=== PATIENT | male | born 1990 | race Caucasian/White ===

== ENCOUNTER 2018-05-28 04:27 | Day surgery (SDC) | payer SELFPAY ==
[~2018-05-28 04:27] MED LIST: HYOS-49 PO; ONDA-2 PO
--- NOTE | 2018-05-28 04:30 | ER Report ---
History and Physical Time Seen By MD: 04:30 HPI/ROS CHIEF COMPLAINT: Right lower quadrant abdominal pain HISTORY OF PRESENT ILLNESS: Patient is a 28-year-old male with progressively worsening right lower quadrant abdominal pain associated with nausea and retching symptoms began approximately 10 PM last evening. Patient reports positive anorexia. The pain is focally located in the right lower quadrant without migration. Patient denies dysuria or testicular pain denies flank pain. Patient denies fevers or chills. Patient has no recent travel history no recent antibiotic use and no known ill contacts. Patient has had no prior abdominal nancy geries. Pain is described as severe and unremitting and worse with movement. REVIEW OF SYSTEMS: Constitutional: No fever, no chills. Eyes: No discharge. ENT: No sore throat. Cardiovascular: No chest pain, no palpitations. Respiratory: No cough, no shortness of breath. Gastrointestinal: Right lower quadrant abdominal pain Genitourinary: No hematuria. Musculoskeletal: No back pain. Skin: No rashes. Neurological: No headache. Allergies: Coded Allergies: banana (Verified Allergy, Severe, ANAPHYLAXIS, 05/28/18) Home Meds Discontinued Scripts Ondansetron Hcl (ONDANSETRON HCL) 4 Mg Tablet, 4 MG PO Q4-6H for Nausea, #10 Prov:CHRISTINA EHATON MD 05/26/14 Hyoscyamine Sulfate (LEVSIN) 0.125 Mg Tablet, 0.125 MG PO TID for abdominal cramps, #30 Prov:CHRISTINA HEATON MD 05/26/14 Past Medical/Surgical History Noncontributory towards this chief complaint Hx Smoking: Yes Smoking Status: Current: Every Day Smoker Hx Substance Use Disorder: No Hx Alcohol Use: No Constitutional Vital Sign - Last 24 Hours 05/28/18 05/28/18 05/28/18 05/28/18 04:33 04:35 04:42 05:27 Temp 98.3 Pulse 65 78 70 Resp 24 B/P (MAP) 137/86 (103) 137/86 Pulse Ox 94 97 88 O2 Delivery Room Air Intake and Output 05/27/18 05/27/18 05/28/18 15:00 23:00 07:00 Intake Total 1000 ml Balance 1000 ml Physical Exam General Appearance: The patient is alert, has no immediate need for airway protection and no signs of toxicity. Eyes: Pupils equal and round no pallor or injection. ENT, Mouth: Mucous membranes are moist. Respiratory: There are no retractions, lungs are clear to auscultation. Cardiovascular: Regular rate and rhythm. Gastrointestinal: Patient is pain to percussion no McBurney's point with rebound tenderness. Positive rosving sign. Neurological: Awake and alert Skin: Warm and dry, no rashes. Musculoskeletal: Neck is supple non tender. Extremities are nontender, nonswollen and have full range of motion. [ ] Medical Decision Making Data Points Result Diagram: 05/28/188 05/28/188 Laboratory Hematology Test 05/28/18 04:48 Red Blood Count 5.88 M/uL (4.00-5.60) Mean Corpuscular Volume 91.0 fL (80.0-96.0) Mean Corpuscular Hemoglobin 31.5 pg (26.0-33.0) Mean Corpuscular Hemoglobin Concent 34.6 g/dL (32.0-36.0) Red Cell Distribution Width 12.6 % (11.5-14.5) Mean Platelet Volume 8.4 fL (7.2-11.1) Neutrophils (%) (Auto) 86.8 % (39.4-72.5) Lymphocytes (%) (Auto) 7.5 % (17.6-49.6) Monocytes (%) (Auto) 5.1 % (4.1-12.4) Eosinophils (%) (Auto) 0.1 % (0.4-6.7) Basophils (%) (Auto) 0.5 % (0.3-1.4) Nucleated RBC Relative Count (auto) 0.0 /100WBC Neutrophils # (Auto) 21.4 K/uL (2.0-7.4) Lymphocytes # (Auto) 1.8 K/uL (1.3-3.6) Monocytes # (Auto) 1.2 K/uL (0.3-1.0) Eosinophils # (Auto) 0.0 K/uL (0.0-0.5) Basophils # (Auto) 0.1 K/uL (0.0-0.1) Nucleated RBC Absolute Count (auto) 0.01 K/uL Peripheral Blood Smear Yes Y/N Sodium Level 140 mmol/L (137-145) Potassium Level 3.7 mmol/L (3.5-5.0) Chloride Level 103 mmol/L (98-107) Carbon Dioxide Level 23 mmol/L (22-30) Blood Urea Nitrogen 14 mg/dl (9-21) Creatinine 1.00 mg/dl (0.66-1.25) Glomerular Filtration Rate Calc > 60.0 Random Glucose 119 mg/dl (75-110) Calcium Level 9.3 mg/dl (8.4-10.2) Total Bilirubin 2.1 mg/dl (0.2-1.3) Aspartate Amino Transf (AST/SGOT) 24 U/L (0-35) Alanine Aminotransferase (ALT/SGPT) 23 U/L (0-56) Alkaline Phosphatase 47 U/L (0-126) Total Protein 7.2 g/dl (6.3-8.2) Albumin 4.4 g/dl (3.5-5.0) Lipase 31 U/L (23-300) Chemistry Test 05/28/18 04:48 White Blood Count 24.6 k/uL (4.5-11.0) Red Blood Count 5.88 M/uL (4.00-5.60) Hemoglobin 18.5 g/dL (14.0-18.0) Hematocrit 53.5 % (42.0-52.0) Mean Corpuscular Volume 91.0 fL (80.0-96.0) Mean Corpuscular Hemoglobin 31.5 pg (26.0-33.0) Mean Corpuscular Hemoglobin Concent 34.6 g/dL (32.0-36.0) Red Cell Distribution Width 12.6 % (11.5-14.5) Platelet Count 223 K/uL (150-450) Mean Platelet Volume 8.4 fL (7.2-11.1) Neutrophils (%) (Auto) 86.8 % (39.4-72.5) Lymphocytes (%) (Auto) 7.5 % (17.6-49.6) Monocytes (%) (Auto) 5.1 % (4.1-12.4) Eosinophils (%) (Auto) 0.1 % (0.4-6.7) Basophils (%) (Auto) 0.5 % (0.3-1.4) Nucleated RBC Relative Count (auto) 0.0 /100WBC Neutrophils # (Auto) 21.4 K/uL (2.0-7.4) Lymphocytes # (Auto) 1.8 K/uL (1.3-3.6) Monocytes # (Auto) 1.2 K/uL (0.3-1.0) Eosinophils # (Auto) 0.0 K/uL (0.0-0.5) Basophils # (Auto) 0.1 K/uL (0.0-0.1) Nucleated RBC Absolute Count (auto) 0.01 K/uL Peripheral Blood Smear Yes Y/N Glomerular Filtration Rate Calc > 60.0 Calcium Level 9.3 mg/dl (8.4-10.2) Total Bilirubin 2.1 mg/dl (0.2-1.3) Aspartate Amino Transf (AST/SGOT) 24 U/L (0-35) Alanine Aminotransferase (ALT/SGPT) 23 U/L (0-56) Alkaline Phosphatase 47 U/L (0-126) Total Protein 7.2 g/dl (6.3-8.2) Albumin 4.4 g/dl (3.5-5.0) Lipase 31 U/L (23-300) ED Course/Re-evaluation Clinical Indication for ER IV: IV Access ED Course 05/28/2018 4:56:48 am After history and physical exam was performed differential diagnosis was formulated which includes but is not limited to acute appendicitis, kidney stone, urinary tract infection, gastroenteritis. And at this time will be CBC CMP CT scan of the abdomen and pelvis. We will give IV pain and nausea medicine and place the patient in an nothing by mouth status. 05/28/2018 6:03:[address] Jean Baptiste happened to be in the emergency department. History physical exam pertinent lab data were reviewed. CT scan official read is pending however Dr. Jean Baptiste did review the films personally himself and is concerned about acute ruptured appendicitis. He would like us to give 4.5 g of IV Zosyn. Keep the patient nothing by mouth and admitted to the hospital for surgery Decision to Disposition Date: May 28, 2018 Decision to Disposition Time: 06:04 Depart Departure Latest Vital Signs Vital Signs Date Time Temp Pulse Resp B/P (MAP) Pulse Ox O2 Delivery O2 Flow Rate FiO2 05/28/18 05:27 70 88 05/28/18 04:35 98.3 24 137/86 Room Air Impression: Primary Impression: Appendicitis, acute Condition: Improved Disposition: Admitted from ER (to dr Jean Baptiste) New Scripts No Active Prescriptions or Reported Meds Problem Qualifiers Primary Impression: Appendicitis, acute Acute appendicitis type: unspecified acute appendicitis type Qualified Codes: K35.80 - Unspecified acute appendicitis AIDAN MATTA MD May 28, 2018 04:30
[2018-05-28] MEDS ORDERED: NS(*) 0.9% 1000 ML BAG 1,000 ML IV ONE ×2 (04:43→04:53)
[2018-05-28] MEDS ORDERED: ONDANSETRON 4 MG/2 ML VIAL IVP ONE ×2 (04:45→04:55)
[2018-05-28] MEDS ORDERED: MORPHINE 4 MG/ML SDV IVP ONE (04:55)
[2018-05-28 04:59] LABS: PLATELET COUNT, AUTOMATED 223 K/uL (150-450)
[2018-05-28] MEDS ORDERED: IOPAMIDOL 76% 75 ML INFUS BTL 75 ML ONE (05:10)
[2018-05-28] MEDS: PIPERACILLIN/TAZO* 4.5 GM VIAL 4.5 GM in NS(*) 0.9% 100 ML ADDVANT BAG 100 ML IVPB ONE (06:05)
[2018-05-28] MEDS ORDERED: NORMOSOL R SOLN(*) 1000 ML BAG 1,000 ML IV ONE (06:07)
[2018-05-28] MEDS ORDERED: PIPERACILLIN/TAZO 4.5 GM VIAL IVPB ONE (06:13)
[2018-05-28] MEDS ORDERED: NS(*) 0.9% 250 ML BAG 250 ML ONE (06:15)
--- NOTE | 2018-05-28 06:26 | RADIOLOGY IMAGING REPORT ---
FACILITY: [facility] PATIENT NAME: Sal Leyva : 1990 MR: [id number] V: [id number] EXAM DATE: [id number] ORDERING PHYSICIAN: AIDAN MATTA TECHNOLOGIST: [place] [facility] [place] Patient: Sal Leyva : 1990 Visit/Account:[id number] Date of Sevice: 05/28/2018 CT of the abdomen and pelvis with contrast: Indication: Right lower quadrant pain. Technique: Helical CT was performed through the abdomen and pelvis following IV contrast enhancement with 75 cc of Isovue-370. Multiplanar reconstructions are reviewed. One of the following dose optimization techniques was utilized in the performance of this exam: Autom ated exposure control; adjustment of the mA and/or kV according to the patient's size; or use of an i terative reconstruction technique. Specific details can be referenced in the facility's radiology CT exam operational policy. Comparison: None. Lower lung young: No parenchymal or pleural abnormality is identified. Liver: Normal in size, shape, and density. There is uniform enhancement of the venous structures. Gallbladder/biliary tree: The gallbladder is normal in size and homogeneous in density. The bile duct s are normal in caliber. Pancreas: Normal in size, shape, and density. Spleen: Normal in size, shape, and density. A tiny accessory spleen is incidentally noted. Adrenal glands: Within normal limits. Kidneys/urinary bladder: The kidneys are normal in size, shape, and density. There are no signs of ur inary tract calculus or obstruction. The bladder appears homogeneous and unremarkable. Intestinal structures: The appendix is dilated, measuring 1.3 cm. There is diffuse thickening of the appendiceal wall, and the lumen is filled with fluid. Mild inflammatory changes and a small amount of fluid are present around the appendix. The findings are compatible with acute appendicitis and proba ble early perforation. No circumscribed abscess is clearly identified. The intestinal structures are otherwise unremarkable, as visualized. Pelvis: Unremarkable. No evidence of fluid collection or free fluid. Aorta and vascular structures: Within normal limits. Ascites or fluid collections: There is a small amount of fluid around the appendix. Otherwise unremar kable. Skeletal structures: Well mineralized and intact. Impression: Acute appendicitis and probable early perforation. A preliminary report was called to the referring provider at [facility] [place] at 0620 hours. Report Dictated By: Terrance Srinivasan MD at 05/28/2018 6:14 AM Report E-Signed By: Terrance Srinivasan MD at 05/28/2018 6:23 AM WSN:[id number]
--- NOTE | 2018-05-28 06:31 | Gen Surgery History & Physical ---
History of Present Illness Chief Complaint RLQ pain History of Present Illness This 28 year old male presents to ED with a day history of abdominal pain that started as vague periumbilical pain but then localized and increased in intensity in the RLQ. This is associated with anorexia and nausea. He denies change in bowel habits. He has never had similar symptoms. He has felt warm but had not taken his temperature. History Problems: (1) Cigarette smoker (2) Family history of appendicitis Home Meds Discontinued Scripts Ondansetron Hcl (ONDANSETRON HCL) 4 Mg Tablet, 4 MG PO Q4-6H for Nausea, #10 Prov:CHRISTINA HEATON MD 05/26/14 Hyoscyamine Sulfate (LEVSIN) 0.125 Mg Tablet, 0.125 MG PO TID for abdominal cramps, #30 Prov:CHRISTINA HEATON MD 05/26/14 Allergies: Coded Allergies: banana (Verified Allergy, Severe, ANAPHYLAXIS, 05/28/18) Patient History: Appendicitis Review of Systems All Systems Reviewed/Normal: Yes, Except as Noted Gastrointestinal: Nausea, Abdominal Pain Exam General Appearance: Alert, Awake, No Acute Distress, Afebrile Neuro: No Gross deficits Eyes: PERRLA ENT: Moist Mucous Membranes Cardiovascular: Regular Rate and Rhythm Respiratory: No Respiratory Distress, Clear to Auscultation GI: Other (Abdomen is soft but markedly tender in RLQ with rebound and percussion tenderness, positive Rovsings sign, BS present.) Extremities: Soft and Non Tender Psych: Alert & Oriented X3 Medical Decision Making Data Points Result Diagram: 05/28/188 05/28/188 EKG / Imaging Imaging CT c/w appendicitis Pre-Admit Course ED Medications Zosyn 4.5 gm IV Medical Record Review: Yes Assessment and Plan Problems: (1) Appendicitis, acute Status: Acute Assessment & Plan: 05/28/2018: I have discussed in detail with Mr. Leyva the diagnosis of appendicitis, the possible treatment options and the recommended plan of laparoscopic appendectomy, with the possible need to perform an open appendectomy. I also discussed the risks and possible complications of surgery, including wound infection and the need for further interventions. All of his questions were answered. He wishes to proceed with surgery. Informed consent obtained. Zosyn 4.5 gm IVPB was administered in ED. Venous Thromboembolism VTE Risk Physician Assess for VTE Risk: Yes Patient's VTE Risk: Low VTE Diagnostic Test 2 Days Prior to Admit: No Antithrombotics Is Pt On Any Antithrombotics?: No Prophylaxis Tx Contraindicated Pharmacological Contraindicati: Pt at Low Risk for VTE Problem Qualifiers (1) Appendicitis, acute: Acute appendicitis type: unspecified acute appendicitis type Qualified Codes: K35.80 - Unspecified acute appendicitis BORA KERR MD May 28, 2018 06:31
[2018-05-28] MEDS ORDERED: FAMOTIDINE(*) 20MG/50ML PREMIX 50 ML IVPB ONE (06:45)
[2018-05-28] MEDS ORDERED: LIDOCAINE MPF 1% 5 ML VIAL ONE (07:08)
[2018-05-28] MEDS ORDERED: DEXAMETHASONE SOD 4 MG/ML VIAL ONE (07:08)
[2018-05-28] MEDS ORDERED: fentaNYL CITR 250 MCG/5 ML AMP ONE (07:08)
[2018-05-28] MEDS ORDERED: ROCURONIUM BROM 10 MG/ML 10 ML ONE (07:08)
[2018-05-28] MEDS ORDERED: ONDANSETRON 4 MG/2 ML VIAL ONE (07:08)
[2018-05-28] MEDS ORDERED: SUGAMMADEX SOD 200 MG/2 ML SDV ONE (07:08)
[2018-05-28] MEDS ORDERED: PROPOFOL EMUL(*) 10MG/ML 20 ML 20 ML ONE (07:08)
[2018-05-28] MEDS ORDERED: KETAMINE HCL-NS 50 MG/5 ML SYR ONE (07:09)
[2018-05-28] MEDS ORDERED: MIDAZOLAM 2 MG/2 ML VIAL ONE (07:24)
--- NOTE | 2018-05-28 08:38 | Post Operative Progress Note ---
Post Operative Progress Note Date: May 28, 2018 Time: 08:37 Surgeon: Markel Machine [employer] Good[employer] Helper: MORGAN Anesthesia: General ET Pre-Op Diagnosis: Appendicitis Post-Op Diagnosis: Acute suppurative appendicitis (AAST grade 1) Findings: No evidence of perforation or abscess Procedure(s): Laparoscopic appendectomy Specimen Removed:(May be N/A): Appendix Complications: None Estimated Blood Loss: < 5 ml Date OP Note Dictated: May 28, 2018 Time OP Note Dictated: 08:38 BORA KERR MD May 28, 2018 08:38
--- NOTE | 2018-05-28 08:53 | Short(Outpt) Discharge Summary ---
Discharge Summary Reason for Hosp/Final Diag: (1) Appendicitis, acute Status: Acute Hospital Course & Plan: 05/28/2018: I have discussed in detail with Mr. Leyva the diagnosis of appendicitis, the possible treatment options and the recommended plan of laparoscopic appendectomy, with the possible need to perform an open appendectomy. I also discussed the risks and possible complications of surgery, including wound infection and the need for further interventions. All of his questions were answered. He wishes to proceed with surgery. Informed consent obtained. Zosyn 4.5 gm IVPB was administered in ED. 05/28/2018: Laparoscopic appendectomy for AAST Grade 1 appendicitis. Will DC home from Recovery room. Departure Discharge to: Home Discharge Instructions Home Meds Discontinued Scripts Ondansetron Hcl (ONDANSETRON HCL) 4 Mg Tablet, 4 MG PO Q4-6H for Nausea, #10 Prov:CHRISTINA HEATON MD 05/26/14 Hyoscyamine Sulfate (LEVSIN) 0.125 Mg Tablet, 0.125 MG PO TID for abdominal cramps, #30 Prov:CHRISTINA HEATON MD 05/26/14 Diet: Regular Activity: As Tolerated Special Instructions: Follow up with Dr. Baker in 7-10 days. Copies to: ROMIE BAKER MD ; Problem Qualifiers (1) Appendicitis, acute: Acute appendicitis type: with localized peritonitis Appendicitis gangrene presence: without gangrene Appendicitis perforation presence: without perforation Appendicitis abscess presence: without abscess Qualified Codes: K35.30 - Acute appendicitis with localized peritonitis, without perforation or gangrene BORA KERR MD May 28, 2018 08:53
[2018-05-28] MEDS ORDERED: HYDR-4309 PO (08:56)
[2018-05-28 10:23] VITALS: BP 104/73
[2018-05-28 10:25] VITALS: BP 94/74
[2018-05-28] MEDS ORDERED: APAP/HYDROCODONE 325/5 TAB PO ONE (10:35)
--- NOTE | 2018-05-28 12:14 | OPERATIVE REPORT 1 ---
EVENT DATE: May 28, 2018 SURGEON: Layton Jean Baptiste MD ANESTHESIOLOGIST: [*] ANESTHESIA: General endotracheal anesthesia. BELLMAKER: RN PREOPERATIVE DIAGNOSIS Acute appendicitis. POSTOPERATIVE DIAGNOSIS Acute appendicitis, AAST grade 1 appendicitis. PROCEDURE PERFORMED Laparoscopic appendectomy. DESCRIPTION OF PROCEDURE Mr. Leyva was taken to the operating room and placed in the supine position. After induction of adequate general endotracheal anesthesia, the abdomen was prepped and draped in the usual sterile fashion. A time-out was taken. The patient had been administered Zosyn prior to surgery. All equipment necessary was available. Attention was then turned to the umbilicus. An incision was made at the infraumbilical fold. This was carried through the skin and subcutaneous tissue. The midline fascia was then incised. Under direct visualization, the peritoneal cavity was entered. An 0 Vicryl [id number] suture was placed in the fascia. A 10/12 trocar was then introduced under direct visualization. A pneumoperitoneum was created. The laparoscope was then introduced. Two 5 mm ports were placed with one in the right upper quadrant and one in the left lower quadrant. Using graspers, the cecum was retracted medially. The appendix was noted to be acutely inflamed. There was evidence of acute separation and a small amount of periappendiceal fluid. There was no abscess or evidence of perforation. The appendix was then grasped. The mesoappendix was then divided using the Harmonic scalpel. An Endo-ERON stapling device was then brought in through the umbilical port and used to staple and divide the base of the appendix. The appendix was then placed in Endo Patch, which was removed from the umbilical port. The port was replaced. The appendix was submitted to pathology for histiologic evaluation. The right lower quadrant, pelvis and right upper quadrant were irrigated with copious amounts of saline. All irrigant was removed. Adequate hemostasis was confirmed. The ports were then removed under direct visualization with hemostasis noted. The umbilical port site was then closed by tying the [id number] 0 Vicryl suture. An additional 0 Vicryl suture was placed in the fascia. All wounds were infiltrated with 0.5% Marcaine with epinephrine for postop pain control. The skin was then closed with simple running 4-0 Monocryl suture and Dermabond. Final sponge, instrument and needle count were correct x2. The patient tolerated this well and was taken to the PACU in stable condition. He will be discharged home and followed as an outpatient. Wound care and after-care instructions are provided. DISCHARGE MEDICATION [place] one to two every four hours p.r.n. pain #20. He was instructed to follow up in Dr. Hernandez's office in seven to ten days. SLAVA
[2018-05-28 13:47] VITALS: BP 106/74
== END 2018-05-28 10:00 | disposition home or self-care (01) ==
LOC: ER 04:33 → OR 07:30
PROVIDERS: ATTEND Surgery
DX: K35.80 Unspecified acute appendicitis (principal)
CPT/HCPCS: 44970; 74177; 83690; 85025; 88304; 96361; 96365; 96366; 96375; 99284; J1100; J2001; J2250; J2270; J2405; J2543; J2704; J3010; J3490; J7030; J7050; Q9967; 82040; 82247; 82310; 82374; 82435; 82565; 82947; 84075; 84132; 84155; 84295; 84450; 84460; 84520